=== PATIENT | female | born 1955 | race Caucasian/White ===

== ENCOUNTER 2019-01-24 07:55 | Observation (INO) ==
[2019-01-24] MEDS ORDERED: Ipratropium/Albuterol Neb 3 ML IH ONE (08:02)
[2019-01-24] MEDS ORDERED: Azithromycin 500 MG in D5% in Water 250 ML IVPB ONE (08:02)
[2019-01-24] MEDS ORDERED: methylPREDNISolone 125 MG/2 ML VIAL IVP ONE (08:02)
[2019-01-24] MEDS ORDERED: cefTRIAXone 2,000 MG in Water for inj. (sterile) 20 ML 10 ML IVP ONE (08:02)
[2019-01-24] MEDS ORDERED: 0.9 % Sodium Chloride 1,000 ML IVC ONE (08:02)
--- NOTE | 2019-01-24 08:02 | Emergency Department Note ---
Disposition Clinical Impression: Influenza A, Acute respiratory failure with hypoxemia LLL pneumonia Qualifiers: Pneumonia type: due to unspecified organism Qualified Code(s): J18.1 - Lobar pneumonia, unspecified organism Disposition: Admitted As Inpatient Condition: Fair Referrals: Jennifer Barnes CNP [Partnered Physician] - Forms: ED Satisfaction Letter SOB HPI - General Chief Complaint: ED Shortness of Breath/Dyspnea Stated Complaint: breathing difficulty Time Seen by Provider: 01/24/19 07:57 Source: patient, family Mode of arrival: private vehicle Limitations: physical limitation (Dyspnea) Nursing Notes Reviewed: Yes Vital Signs Reviewed: Yes - History of Present Illness Patient presents stating that she has been feeling poorly since Wednesday. She has been having diffuse body aches, feeling hot with fevers and chills and increased congestion. She states she saw her primary care provider on Wednesday and was continue with supportive treatment. She has had increased shortness of breath with dyspnea on exertion as well as resting dyspnea. Family states that she was saturating 84% at rest this morning. Her cough is increased and she is bringing up a amount of green phlegm. She has had fever 203. She reports only slight nausea without any vomiting. She had scant diarrhea yesterday evening. She denies abdominal pain or cramping. She is not having chest pain. She denies any lower extremity swelling, immobilization or injury. She denies any ill exposures. She has not months status post her second lumbar surgery and has not been having complications. She is getting around with a cane. Patient did take some Tylenol prior to arrival. Pt Subjective Complaint: shortness of breath, cough Onset (ago): day(s) (2) Context: recent illness Severity: moderate Consistency/Duration: gradually worsening Improves with: rest, upright position Worsens with: lying flat, exertion, coughing Associated symptoms: Reports: fever, cough, wheezing, sputum production, orthopnea. Denies: chest pain, pain with inspiration, lower extremity pain, polyuria, polydipsia, parasthesias, palpitations, hemoptysis, diaphoresis, nausea/vomiting, syncope, abdominal pain, rash Treatment prior to arrival: none Cough present: Yes Cough Description: Voluntary, Productive, Rattling Cough Frequency: Intermittent Sputum production: Yes Sputum Amount: Moderate Sputum Color: Green - Related Data Home oxygen amount: none Home Medications Medication Instructions Recorded Confirmed Lisinopril [Zestril] 5 mg PO DAILY 07/03/16 01/24/19 Propranolol [Inderal] 80 mg PO DAILY 10/31/16 01/24/19 LORazepam [Ativan] 1 mg PO HS 11/25/17 01/24/19 Methocarbamol [Robaxin] 750 mg PO TID 11/25/17 01/24/19 Venlafaxine [Effexor] 75 mg PO DAILY 11/25/17 01/24/19 hydroCHLOROthiazide 25 mg PO DAILY 11/25/17 01/24/19 [Hydrochlorothiazide] Benzonatate [Tessalon] 100 mg PO TID 01/24/19 01/24/19 Celecoxib [Celebrex] 200 mg PO BID 01/24/19 01/24/19 Docusate [Colace] 100 mg PO BID 01/24/19 01/24/19 Gabapentin [Neurontin] 100 mg PO TID 01/24/19 01/24/19 Hydrocodone/Acetaminophen 1 each PO Q8H 01/24/19 01/24/19 [Hydrocodon-Acetaminophen 5-325] Loratadine [Claritin] 10 mg PO DAILY 01/24/19 01/24/19 Allergies Allergy/AdvReac Type Severity Reaction Status Date / Time codeine AdvReac Nausea Verified 11/25/17 09:46 All systems ED: reviewed and negative except as stated. Past Medical History - Past Medical History Attestation: Yes The following information was validated with the patient. Source: patient, old records reviewed, obtained from family, nursing notes reviewed Medical history: Reports: arthritis, hypertension, migraine Surgical history: Reports: orthopedic, other (back, lumbar) Psychiatric history: Reports: anxiety, depression - Social History Smoking Status: Never smoker Smokeless Tobacco Status: No Alcohol use: Reports: none Drug use: Reports: none Physical Exam - General Limitations: no limitations General appearance: alert, in distress - Head Head exam: atraumatic, normocephalic, normal inspection - Eye Eye exam: Present: normal appearance, PERRL, EOMI - ENT ENT exam: normal exam, normal oropharynx, mucous membranes moist - Neck Neck exam: Present: normal inspection, full ROM, trachea midline - Chest Chest inspection: Present: normal inspection, symmetric chest wall rise - Respiratory Respiratory exam: Present: respiratory distress, wheezes, prolonged expiratory phase, other (Scattered rhonchi on the right side, congested cough) - Cardiovascular Cardiovascular exam: Present: regular rate, normal rhythm, normal heart sounds. Absent: tachycardia - Abdominal Exam Abdominal exam: Present: soft, Non-Tender, normal bowel sounds. Absent: tenderness, distention, guarding, rebound, rigidity - Extremities Exam Extremities exam: Present: normal inspection, full ROM, normal capillary refill. Absent: tenderness, pedal edema, calf tenderness - Expanded Lower Extremity Exam Neurovascular/Tendon exam: Present: normal capillary refill. Absent: motor deficit, sensory deficit, tendon deficit Gait: observed and normal (With a cane) - Back Exam Back exam: Present: normal inspection, full ROM, other (Midline lumbar scar is well approximated without any inflammation or tenderness.). Absent: tenderness - Neurological Exam Neurological exam: Present: alert, oriented X3, normal gait - Psychiatric Psychiatric exam: Present: normal affect, normal mood - Skin Skin exam: Present: warm, dry, intact, normal color. Absent: cyanosis, diaphoresis, pallor Course Course Narrative: 0849: Patient is positive for influenza A. I have added Tamiflu to her medications. I am awaiting the return of all other laboratories and the radiology reading on her chest x-ray. She will need inpatient observation. This has been discussed with the patient and family. 0900: All testing has been discussed with the patient, family and Dr. Landeros. The patient does have an elevated d-dimer and a CT PE study will be performed prior to anticipated admission. 0945: With return of the CT PE study, the report has been copied and presented to the patient and friend at bedside. The patient's daughter is not Hurting and has had some texts about whether her mother could be transferred to the main campus of [facility]. We are clarifying with the patient's daughter if that is a definite request with plan to then allow the patient to determine her disposition with the input of her daughter. 0950: Dr. Landeros is advised of the CT report. He is agreeable with admission to this facility should the patient and family elect to stay here. 1000: Patient requests transfer to [facility]. Call is being placed to the transfer line. 1005: [facility] transfer center advises that they have no beds in the hospital and 12 admission holds in the emergency department at this time. I have discussed this with the patient and friend. They are recontacting the patient's daughter to discuss their options. 1025: Family has decided to stay at this facility. They understand that if she has a decline in her clinical status but transfer can be coordinated at a later time. I recontacted to Dr. Landeros who is agreeable with the admission and has given verbal orders. Vital Signs Temperature 103.0 F H 01/24/19 07:56 Pulse Rate 102 01/24/19 07:56 Respiratory Rate 21 01/24/19 07:56 Blood Pressure 127/80 01/24/19 07:56 O2 Sat by Pulse Oximetry 83 01/24/19 07:56 Temperature 99.3 F 01/24/19 09:34 Pulse Rate 82 01/24/19 10:06 Respiratory Rate 23 01/24/19 10:06 Blood Pressure 103/69 01/24/19 10:06 O2 Sat by Pulse Oximetry 93 01/24/19 10:06 Oxygen Delivery Oxygen Delivery Nasal Cannula Shortness of Breath/Dyspnea - Differential Diagnosis Likely: congestive heart failure, pneumonia (Influenza), pulmonary embolism. Unlikely: pneumothorax - Medical Records Medical records reviewed: Yes I reviewed the patient's medical records. - Lab Data Lab results reviewed: Yes I reviewed the patient's lab results. Lab results narrative: Influenza A is positive Result diagrams: 01/24/19 08:15 01/24/19 08:15 Lab Results 01/24/19 01/24/19 01/24/19 Range/Units 08:15 08:15 08:15 WBC 10.9 (4.3-11.1) K/mcL RBC 4.65 (3.82-4.97) M/mcL Hgb 12.0 (11.5-15.4) g/dL Hct 38.4 (35.3-44.9) % MCV 82.6 L (83.0-100.0) fL MCH 25.8 L (28.0-33.3) pg MCHC 31.3 L (31.6-35.5) g/dL RDW 18.0 H (11.5-14.5) % Plt Count 234 (140-400) K/mcL MPV 9.0 L (9.4-12.4) fL Immature Gran % 0.5 (0-4) % Seg Neutrophils % 69.2 % Lymphocytes % 16.8 % Monocytes % 13.2 % Eosinophils % 0.0 % Basophils % 0.3 % Neutrophils # 7.5 (1.6-8.9) K/mcL Lymphocytes # 1.8 (0.6-4.6) K/mcL Monocytes # 1.4 H (0.0-1.3) K/mcL Eosinophils # 0.0 (0.0-0.6) K/mcL Basophils # 0.0 (0.0-0.2) K/mcL PT 12.5 H (9.4-12.1) Seconds INR 1.1 APTT 31.6 (26.0-36.0) Seconds D-Dimer 968 H (0-500) ng/mLFEU VBG Lactic Acid (0.5-2.2) mmol/L Sodium 135 L (136-145) mEq/L Potassium 3.6 (3.5-4.5) mEq/L Chloride 97 L (98-109) mEq/L Carbon Dioxide 30 H (23-29) mEq/L BUN 20 (8-23) mg/dL Creatinine 0.81 (0.60-1.20) mg/dL Est GFR ( Amer) > 60 (> 60) Est GFR (Non-Af Amer) > 60 (> 60) BUN/Creatinine Ratio 26 (6-26) Glucose 127 H (70-99) mg/dL Calculated Osmolality 284 (280-300) Lactic Acid (0.5-2.2) mmol/L Calcium 8.9 (8.6-10.3) mg/dL Total Bilirubin 0.3 (0.3-1.0) mg/dL Direct Bilirubin 0.1 (0.0-0.2) mg/dL Indirect Bilirubin 0.2 (0.0-1.2) mg/dL AST 26 (13-39) Units/L ALT 19 (7-52) Units/L Alkaline Phosphatase 90 (34-104) Units/L Troponin I < 0.03 (< 0.04) ng/mL B-Natriuretic Peptide (Less than 100) pg/mL Serum Total Protein 6.9 (6.4-8.9) g/dL Albumin 3.9 (3.5-5.7) g/dL Globulin 3.0 (2.4-3.5) g/dL Albumin/Globulin Ratio 1.3 (1.1-2.2) 01/24/19 01/24/19 01/24/19 Range/Units 08:15 08:15 08:33 WBC (4.3-11.1) K/mcL RBC (3.82-4.97) M/mcL Hgb (11.5-15.4) g/dL Hct (35.3-44.9) % MCV (83.0-100.0) fL MCH (28.0-33.3) pg MCHC (31.6-35.5) g/dL RDW (11.5-14.5) % Plt Count (140-400) K/mcL MPV (9.4-12.4) fL Immature Gran % (0-4) % Seg Neutrophils % % Lymphocytes % % Monocytes % % Eosinophils % % Basophils % % Neutrophils # (1.6-8.9) K/mcL Lymphocytes # (0.6-4.6) K/mcL Monocytes # (0.0-1.3) K/mcL Eosinophils # (0.0-0.6) K/mcL Basophils # (0.0-0.2) K/mcL PT (9.4-12.1) Seconds INR APTT (26.0-36.0) Seconds D-Dimer (0-500) ng/mLFEU VBG Lactic Acid 1.1 (0.5-2.2) mmol/L Sodium (136-145) mEq/L Potassium (3.5-4.5) mEq/L Chloride (98-109) mEq/L Carbon Dioxide (23-29) mEq/L BUN (8-23) mg/dL Creatinine (0.60-1.20) mg/dL Est GFR ( Amer) (> 60) Est GFR (Non-Af Amer) (> 60) BUN/Creatinine Ratio (6-26) Glucose (70-99) mg/dL Calculated Osmolality (280-300) Lactic Acid 1.1 (0.5-2.2) mmol/L Calcium (8.6-10.3) mg/dL Total Bilirubin (0.3-1.0) mg/dL Direct Bilirubin (0.0-0.2) mg/dL Indirect Bilirubin (0.0-1.2) mg/dL AST (13-39) Units/L ALT (7-52) Units/L Alkaline Phosphatase (34-104) Units/L Troponin I (< 0.04) ng/mL B-Natriuretic Peptide 19 (Less than 100) pg/mL Serum Total Protein (6.4-8.9) g/dL Albumin (3.5-5.7) g/dL Globulin (2.4-3.5) g/dL Albumin/Globulin Ratio (1.1-2.2) - Radiology Data Radiology results reviewed: Yes I reviewed the patient's radiology results. Single view chest x-rays performed. This has atelectasis in the left lung above and elevated left hemidiaphragm. The hemidiaphragm has been elevated in previous imaging. I do not see focal infiltrate nor effusion in either lung. Patient does not have pneumothorax or widened mediastinum. The cardiac silhouette does not appear enlarged. This is on my interpretation. Impressions Chest X-Ray 01/24/19 08:02 IMPRESSION: Hypoinflated lungs and left hemidiaphragm elevation. Left more than right basilar atelectasis. D/ / Jessi Peralta MD / Jessi Peralta MD Interpreting Provider: Jessi Peralta MD Impressions Chest X-Ray 01/24/19 08:02 IMPRESSION: Hypoinflated lungs and left hemidiaphragm elevation. Left more than right basilar atelectasis. D/ / Jessi Peralta MD / Jessi Peralta MD Interpreting Provider: Jessi Peralta MD Chest CTA 01/24/19 08:58 IMPRESSION: 1. No acute pulmonary artery embolism. 2. Enlarged main pulmonary artery may reflect pulmonary hypertension. 3. Concentric narrowing of the distal right mainstem bronchus and origin to the right upper lobe bronchial segments with surrounding wall thickening and enlarged right hilar lymph node. Differential includes tracheomalacia or related to infectious/inflammatory origin. An underlying mass is not excluded. Recommend bronchoscopy. 4. Left lower lobe atelectasis or developing infection. D/ / Dmitry Saab MD / Dmityr Saab MD Interpreting Provider: Dmitry Saab MD - EKG Data EKG attestation: Yes I reviewed and interpreted this EKG. EKG shows normal: Reports: sinus rhythm, axis, intervals, QRS complexes, ST-T waves Rate: Reports: normal (99) Interpretation: Reports: no acute changes, normal EKG Critical Care Time Critical Care Time: Yes Total Critical Care Time: 45 Attestation: As this patient did present with signs and symptoms of potential life- threatening illness requiring my urgent intervention, total critical care time in this patient's care has been 45 minutes, not withstanding separately reportable procedures.
[2019-01-24 08:26] LABS: Basophils % 0.3 %; Hematocrit 38.4 % (35.3-44.9); Immature Granulocytes % 0.5 % (0-4); Lymphocytes # 1.8 K/mcL (0.6-4.6); Lymphocytes % 16.8 %; Mean Corpuscular HGB Conc 31.3 g/dL (31.6-35.5); Mean Corpuscular Hemoglobin 25.8 pg (28.0-33.3); Mean Corpuscular Volume 82.6 fL (83.0-100.0); Monocytes # 1.4 K/mcL (0.0-1.3); Monocytes % 13.2 %; Neutrophils # 7.5 K/mcL (1.6-8.9); Platelet Count 234 K/mcL (140-400); Red Blood Count 4.65 M/mcL (3.82-4.97); Segmented Neutrophils % 69.2 %
[2019-01-24 08:40] LABS: Sodium 135 mEq/L (136-145); eGFR For Non-African Americans > 60 (> 60)
[2019-01-24 08:41] LABS: INR 1.1; Prothrombin Time 12.5 Seconds (9.4-12.1)
[2019-01-24 08:43] LABS: Chloride 97 mEq/L (98-109); Potassium 3.6 mEq/L (3.5-4.5)
[2019-01-24 08:44] LABS: Activated Partial Thrombo Time 31.6 Seconds (26.0-36.0); Glucose 127 mg/dL (70-99)
[2019-01-24 08:49] LABS: Troponin I < 0.03 ng/mL (< 0.04)
[2019-01-24] MEDS ORDERED: Isovue-370 500 ML BOTTLE IVP ONE (08:58)
[2019-01-24] MEDS ORDERED: 0.9 % Sodium Chloride 1,000 ML IVC SCH ×2 (09:15→11:39)
[2019-01-24 09:59] LABS: Alanine Aminotransferase 19 Units/L (7-52); Albumin 3.9 g/dL (3.5-5.7); Albumin/Globulin Ratio 1.3 (1.1-2.2); Alkaline Phosphatase 90 Units/L (34-104); Aspartate Amino Transferase 26 Units/L (13-39); BUN/Creatinine Ratio 26 (6-26); Bilirubin,Direct 0.1 mg/dL (0.0-0.2); Blood Urea Nitrogen 20 mg/dL (8-23); Calcium 8.9 mg/dL (8.6-10.3); Carbon Dioxide 30 mEq/L (23-29); Osmolality,Calculated 284 (280-300); Total Protein 6.9 g/dL (6.4-8.9)
[2019-01-24 10:07] LABS: Bilirubin,Indirect 0.2 mg/dL (0.0-1.2)
[2019-01-24 10:09] LABS: Bilirubin,Total 0.3 mg/dL (0.3-1.0)
[2019-01-24] MEDS ORDERED: *HR* HYDROcodone/Acet 5/325 mg TABLET PO SCH (11:39)
[2019-01-24] MEDS ORDERED: Mag Hydrox/Al Hydrox/Simeth 30 ML UDC PO PRN (11:39)
[2019-01-24] MEDS ORDERED: Albuterol 2.5 MG/3 ML NEBULIZER IH PRN (11:39)
[2019-01-24] MEDS ORDERED: Ondansetron 4 MG/2 ML VIAL IVP PRN (11:39)
[2019-01-24] MEDS ORDERED: MOM Conc 10 ML UD.LIQ PO PRN (11:39)
[2019-01-24] MEDS ORDERED: Naloxone 0.4 MG/ML INJ IVP PRN (11:39)
[2019-01-24] MEDS: Gabapentin 100 MG CAPSULE PO SCH ×2 (14:54→22:05)
[2019-01-24] MEDS: Methocarbamol 500 MG TABLET PO SCH ×2 (14:54→22:05)
[2019-01-24] MEDS: Benzonatate 100 MG CAPSULE PO SCH ×2 (14:54→22:06)
--- NOTE | 2019-01-24 15:26 | Internal Med History&Physical ---
Date of Encounter: 01/24/19 Time of Encounter: 14:55 Assessment and Plan (1) Influenza A Current visit: Yes Status: Acute Tamiflu has been ordered. (2) Hypertension Current visit: Yes Status: Chronic Continue lisinopril and HCTZ. Qualifiers: Hypertension type: essential hypertension Qualified Code(s): I10 - Essential (primary) hypertension (3) Microcytosis Current visit: Yes Status: Acute Iron profile will be ordered. (4) LLL pneumonia Current visit: Yes Status: Acute Rocephin and doxycycline with lactobacillus will be given. Qualifiers: Pneumonia type: due to unspecified organism Qualified Code(s): J18.1 - Lobar pneumonia, unspecified organism (5) Hyperglycemia Current visit: Yes Status: Acute Present on all labs since June 2014. Hemoglobin A1c will be checked in a.m. Internal Medicine - H&P: HPI Chief complaint: Dyspnea, Cough and fever Admitted From: Emergency Dept Plans for Post Hospital Care: Home History of present illness: Ms. Lui is a 63 year old female who came to emergency room stating she had onset of fever, dyspnea,, myalgias/arthralgias, cough with green sputum production, and slight diarrhea approximately 48 hours previously. She denies family members or other contacts with similar symptoms. She came to emergency room and was found to have influenza A. Chest CTA showed concentric narrowing of the distal right mainstem bronchus extending into the origin of the RUL bronchial segments with surrounding wall thickening and large right hilar lymph node. She was admitted to [facility] floor for ongoing care needs. Respiratory history is significant for having smoked from age [age]. She does not use home oxygen and has not been diagnosed with chronic lung disease. She has not been tested for sleep apnea. She reports receiving an influenza immunization injection fall 2017. Past Med Surg Social Fam HX - Past Medical History Medical history: arthritis, hypertension, migraine Psychiatric history: anxiety, depression - Past Surgical History Surgical History: orthopedic, other Additional surgical history: lumbar surgery (spinal fusion, 09/2018) - Social History Smoking Status: Never smoker Smokeless Tobacco Status: No Alcohol use: none Drug use: none Internal Medicine - H&P: Meds Lisinopril [Zestril] 5 mg PO DAILY 07/03/16 [History] Propranolol [Inderal] 80 mg PO DAILY 01/21/17 [History] LORazepam [Ativan] 1 mg PO HS 11/25/17 [History] Methocarbamol [Robaxin] 750 mg PO TID 11/25/17 [History] Venlafaxine [Effexor] 75 mg PO DAILY 11/25/17 [History] hydroCHLOROthiazide [Hydrochlorothiazide] 25 mg PO DAILY 11/25/17 [History] Benzonatate [Tessalon] 100 mg PO TID 01/24/19 [History] Celecoxib [Celebrex] 200 mg PO BID 01/24/19 [History] Docusate [Colace] 100 mg PO BID 01/24/19 [History] Gabapentin [Neurontin] 100 mg PO TID 01/24/19 [History] Loratadine [Claritin] 10 mg PO DAILY 01/24/19 [History] Allergy/AdvReac Type Severity Reaction Status Date / Time codeine AdvReac Nausea Verified 11/25/17 09:46 All Systems PM: A 10-system review of systems was performed and is negative for pertinent findings except as documented above in the HPI. Review of systems: Gen.: She states her weight has increased approximately 14 pounds in the past year Cardiovascular: She has history of hypertension but denies [place] heart failure angina DVT or pulmonary embolus Respiratory: As per history of present illness GI: She denies disorders of her liver gallbladder or exocrine pancreas : She denies hematuria dysuria or kidney stones Neurologic: She has had migraine headaches. She denies large distribution strokes or seizures. Endocrine: She denies diabetes thyroid disease or hyperlipidemia Hematology/oncology: She denies blood disorders cancers or anemia Psychiatric: She has anxiety and depression but denies other mental health diagnosis. [place] skeletal: She had L3-S1 fusion surgery October 2018 at [place]. She has DJD but denies gout or other bone joint or muscle disorders. - Constitutional Vitals: Temp Pulse Resp BP Pulse Ox 99.3 F 76 22 104/70 94 01/24/19 09:34 01/24/19 11:03 01/24/19 11:03 01/24/19 11:03 01/24/19 11:03 Exam: Gen.: She is a well-developed well-nourished female resting comfortably in bed who appears in no acute distress HEENT: Head is atraumatic and normocephalic. Eyes: EOMI. There is no scleral icterus. Mouth: Mucosa is moist. Neck: Supple and nontender. There is no thyromegaly or adenopathy noted. Heart: Regular without murmurs gallops or ectopics Lungs: No wheezes or crackles are heard. Abdomen: Soft and nontender. No masses or guarding are noted. Extremities: There is no cyanosis edema or clubbing noted. Dorsalis pedis and posterior tibial pulses are 1-2 over 2 bilaterally. Neurologic: Mental status: She is talkative and a good historian. Cranial nerves: Smile is symmetric. Forehead wrinkles bilaterally. Tongue protrudes midline. EOMI. Motor: There is no pronator drift. Cerebellar: Finger to nose is intact bilaterally. Skin: Warm and dry Internal Med - H&P Results - Labs CBC & Chem 7: 01/24/19 08:15 01/24/19 08:15 Labs: Short CBC 01/24/19 Range/Units 08:15 WBC 10.9 (4.3-11.1) K/mcL Hgb 12.0 (11.5-15.4) g/dL Hct 38.4 (35.3-44.9) % Plt Count 234 (140-400) K/mcL Neutrophils # 7.5 (1.6-8.9) K/mcL BMP 01/24/19 08:15 Sodium 135 L Potassium 3.6 Chloride 97 L Carbon Dioxide 30 H BUN 20 Creatinine 0.81 Glucose 127 H Calcium 8.9 Cardiac Enzymes 01/24/19 Range/Units 08:15 Troponin I < 0.03 (< 0.04) ng/mL Liver Function 01/24/19 Range/Units 08:15 Total Bilirubin 0.3 (0.3-1.0) mg/dL Direct Bilirubin 0.1 (0.0-0.2) mg/dL AST 26 (13-39) Units/L ALT 19 (7-52) Units/L Alkaline Phosphatase 90 (34-104) Units/L Albumin 3.9 (3.5-5.7) g/dL - Impressions ITS Impressions Chest X-Ray 01/24/19 08:02 IMPRESSION: Hypoinflated lungs and left hemidiaphragm elevation. Left more than right basilar atelectasis. D/ / BeccaAnn Peralta MD / Jessi bains MD Interpreting Provider: Jessi Peralta MD Chest CTA 01/24/19 08:58 IMPRESSION: 1. No acute pulmonary artery embolism. 2. Enlarged main pulmonary artery may reflect pulmonary hypertension. 3. Concentric narrowing of the distal right mainstem bronchus and origin to the right upper lobe bronchial segments with surrounding wall thickening and enlarged right hilar lymph node. Differential includes tracheomalacia or related to infectious/inflammatory origin. An underlying mass is not excluded. Recommend bronchoscopy. 4. Left lower lobe atelectasis or developing infection. D/ / 01/24/2019 09:46:26 Dmitry Saab MD / Keisha Llamas Interpreting Provider: Dmitry Saab MD
[2019-01-24] MEDS ORDERED: Ipratropium/Albuterol Neb 3 ML IH SCH (16:00)
[2019-01-24] MEDS: 0.45 % Sodium Chloride w/KCl 20 MEQ/1,000 ML MLS IVC SCH (17:00)
[2019-01-24] MEDS: Doxycycline 100 MG in 0.9 % Sodium Chloride Mini Bag 100 ML IVPB SCH (17:01)
[2019-01-24] MEDS ORDERED: *HR* LORazepam 1 MG TABLET PO SCH (21:00)
[2019-01-24] MEDS: Celecoxib 100 MG CAPSULE PO SCH (22:06)
[2019-01-24] MEDS: *HR* HYDROcodone/Acet 5/325 mg TABLET PO PRN (22:20)
[2019-01-25] MEDS: 0.45 % Sodium Chloride w/KCl 20 MEQ/1,000 ML MLS IVC SCH (02:56)
[2019-01-25 05:49] LABS: Basophils % 0.2 %; Hematocrit 35.8 % (35.3-44.9); Hemoglobin 10.9 g/dL (11.5-15.4); Immature Granulocytes % 0.6 % (0-4); Lymphocytes # 1.9 K/mcL (0.6-4.6); Lymphocytes % 14.7 %; Mean Corpuscular HGB Conc 30.4 g/dL (31.6-35.5); Mean Corpuscular Hemoglobin 25.4 pg (28.0-33.3); Mean Corpuscular Volume 83.4 fL (83.0-100.0); Mean Platelet Volume 9.1 fL (9.4-12.4); Monocytes # 1.1 K/mcL (0.0-1.3); Monocytes % 8.6 %; Platelet Count 215 K/mcL (140-400); Red Blood Count 4.29 M/mcL (3.82-4.97); Red Cell Distribution Width 18.2 % (11.5-14.5); Segmented Neutrophils % 75.9 %
[2019-01-25 06:08] LABS: BUN/Creatinine Ratio 25 (6-26); Blood Urea Nitrogen 15 mg/dL (8-23); Calcium 8.5 mg/dL (8.6-10.3); Carbon Dioxide 29 mEq/L (23-29); Chloride 101 mEq/L (98-107); Glucose 153 mg/dL (70-105); Neutrophils # 9.6 K/mcL (1.6-8.9); Osmolality,Calculated 288 (280-300); Potassium 3.5 mEq/L (3.5-5.1); Sodium 137 mEq/L (136-145); eGFR For Non-African Americans > 60 (> 60)
[2019-01-25] MEDS: Doxycycline 100 MG in 0.9 % Sodium Chloride Mini Bag 100 ML IVPB SCH ×2 (06:44→17:55)
[2019-01-25] MEDS ORDERED: cefTRIAXone 2,000 MG in Water for inj. (sterile) 20 ML 20 ML IVPB SCH (08:00)
[2019-01-25] MEDS ORDERED: Azithromycin 500 MG in D5% in Water 250 ML IVPB SCH (08:00)
[2019-01-25 08:58] LABS: % Iron Saturation 4 % (15-50); Iron 16 mcg/dL (50-170); Transferrin 290 mg/dL (203-362)
[2019-01-25 09:16] LABS: Ferritin 57 ng/mL (10-120)
[2019-01-25 09:29] LABS: Estimated Average Glucose 148 mg/dl; Hemoglobin A1C 6.8 %
[2019-01-25] MEDS: Celecoxib 100 MG CAPSULE PO SCH (09:51)
[2019-01-25] MEDS: Loratadine 10 MG TABLET PO SCH (09:51)
[2019-01-25] MEDS: hydroCHLOROthiazide 25 MG TABLET PO SCH (09:53)
[2019-01-25] MEDS: Benzonatate 100 MG CAPSULE PO SCH ×3 (09:54→21:30)
[2019-01-25] MEDS: Gabapentin 100 MG CAPSULE PO SCH (09:54)
[2019-01-25] MEDS: Methocarbamol 500 MG TABLET PO SCH ×3 (09:54→21:28)
[2019-01-25] MEDS ORDERED: Gabapentin 100 MG CAPSULE PO SCH ×2 (10:30→15:00)
[2019-01-25] MEDS ORDERED: 0.45 % Sodium Chloride w/KCl 20 MEQ/1,000 ML MLS IVC SCH (10:30)
--- NOTE | 2019-01-25 10:50 | Internal Med Progress Note ---
Date of Encounter: 01/25/19 Time of Encounter: 10:20 - Assessment and plan (1) Influenza A Current Visit: Yes Status: Acute Assessment and plan: January 25. Continue Tamiflu (2) Hypertension Current Visit: Yes Status: Chronic Assessment and plan: January 25. Continue lisinopril and HCTZ Qualifiers: Hypertension type: essential hypertension Qualified Code(s): I10 - Essential (primary) hypertension (3) Microcytosis Current Visit: Yes Status: Acute Assessment and plan: January 25. Anemia testing showed iron 16, transferrin saturation 4%, transferrin 290, ferritin 57, and B12 614. Hemoglobin has decreased to 10.9. Start ferrous sulfate with ascorbic acid in a.m. (4) LLL pneumonia Current Visit: Yes Status: Acute Assessment and plan: January 25. Continue Rocephin and doxycycline with lactobacillus. Qualifiers: Pneumonia type: due to unspecified organism Qualified Code(s): J18.1 - Lobar pneumonia, unspecified organism (5) Hyperglycemia Current Visit: Yes Status: Acute Assessment and plan: January 25. Hemoglobin A1c is 6.8% consistent with DM 2, diet-controlled. She will receive diabetic diet instruction. - Subjective Interval history: January 25. She has no new complaints. - Constitutional Vitals: Temp Pulse Resp BP Pulse Ox 98.5 F 67 18 127/80 93 01/25/19 08:11 01/25/19 08:11 01/25/19 08:11 01/25/19 08:11 01/25/19 08:11 Exam: She is sitting in bed and appears in no acute distress. Her affect is overall cheerful. I reviewed her medications and lab results. Internal Medicine: Result - Labs CBC & Chem 7: 01/25/19 05:33 01/25/19 05:33 Labs: Short CBC 01/25/19 Range/Units 05:33 WBC 12.7 H (4.3-11.1) K/mcL Hgb 10.9 L (11.5-15.4) g/dL Hct 35.8 (35.3-44.9) % Plt Count 215 (140-400) K/mcL Neutrophils # 9.6 H (1.6-8.9) K/mcL BMP 01/25/19 05:33 Sodium 137 Potassium 3.5 Chloride 101 Carbon Dioxide 29 BUN 15 Creatinine 0.59 L Glucose 153 H Calcium 8.5 L - ABG Interpretation ABG results: PT/INR, D-dimer PT 12.5 Seconds (9.4-12.1) H 01/24/19 08:15 D-Dimer 968 ng/mLFEU (0-500) H 01/24/19 08:15 Consult Discharge Plan - Plan Referrals: NONE,PCP [Primary Care Provider] - 1 week
[2019-01-25] MEDS ORDERED: Acetaminophen 325 MG TABLET PO PRN (10:57)
[2019-01-25] MEDS: *HR* LORazepam 1 MG TABLET PO SCH (11:23)
[2019-01-25] MEDS: Lactobacillus 1 EACH CAP.SPRINK PO SCH ×2 (11:23→21:32)
[2019-01-25] MEDS ORDERED: *HR* LORazepam 1 MG TABLET PO PRN (16:14)
--- NOTE | 2019-01-25 17:56 | Electrocardiograph Report ---
[place] [id number] Test Date: 2019-01-24 Pat Name: Giovana Lui Department: EDP-16 Room: [facility] Gender: F [employer]: : [id number] Requested By: Geronimo Andersen Order Number: [id number] Reading MD: Calin Zuniga Measurements Intervals [place] Rate: 99 P: 41 NH: 133 QRS: -1 QRSD: 89 T: 38 QT: 343 QTc: 441 Interpretive Statements Sinus rhythm Abnormal R-wave progression, early transition Electronically Signed On 01-25-2019 17:54:16 EDT by Calin Zuniga
[2019-01-25] MEDS ORDERED: traZODone 50 MG TABLET PO PRN (18:26)
[2019-01-25] MEDS ORDERED: Gabapentin 300 MG CAPSULE PO SCH (21:00)
[2019-01-25] MEDS: *HR* HYDROcodone/Acet 5/325 mg TABLET PO PRN (21:31)
[2019-01-25] MEDS: Gabapentin 300 MG CAPSULE PO SCH (21:32)
[2019-01-26 05:56] LABS: Basophils % 0.2 %; Eosinophils % 0.2 %; Hematocrit 34.8 % (35.3-44.9); Hemoglobin 10.7 g/dL (11.5-15.4); Immature Granulocytes % 0.3 % (0-4); Lymphocytes # 2.6 K/mcL (0.6-4.6); Lymphocytes % 29.2 %; Mean Corpuscular HGB Conc 30.7 g/dL (31.6-35.5); Mean Corpuscular Hemoglobin 25.4 pg (28.0-33.3); Mean Corpuscular Volume 82.7 fL (83.0-100.0); Mean Platelet Volume 9.4 fL (9.4-12.4); Monocytes # 0.8 K/mcL (0.0-1.3); Monocytes % 9.2 %; Neutrophils # 5.4 K/mcL (1.6-8.9); Platelet Count 224 K/mcL (140-400); Red Blood Count 4.21 M/mcL (3.82-4.97); Red Cell Distribution Width 17.8 % (11.5-14.5); Segmented Neutrophils % 60.9 %
[2019-01-26] MEDS: Doxycycline 100 MG in 0.9 % Sodium Chloride Mini Bag 100 ML IVPB SCH (06:14)
[2019-01-26 06:19] LABS: BUN/Creatinine Ratio 22 (6-26); Blood Urea Nitrogen 13 mg/dL (8-23); Calcium 8.7 mg/dL (8.6-10.3); Carbon Dioxide 29 mEq/L (23-29); Chloride 101 mEq/L (98-107); Glucose 95 mg/dL (70-105); Osmolality,Calculated 286 (280-300); Potassium 3.2 mEq/L (3.5-5.1); Sodium 138 mEq/L (136-145); eGFR For Non-African Americans > 60 (> 60)
[2019-01-26] MEDS ORDERED: Ascorbic Acid 500 MG TABLET PO SCH (06:30)
[2019-01-26] MEDS: Gabapentin 300 MG CAPSULE PO SCH (08:29)
[2019-01-26] MEDS: Lactobacillus 1 EACH CAP.SPRINK PO SCH (08:30)
[2019-01-26] MEDS: *HR* LORazepam 1 MG TABLET PO SCH (08:31)
[2019-01-26] MEDS: Benzonatate 100 MG CAPSULE PO SCH (08:31)
[2019-01-26] MEDS: hydroCHLOROthiazide 25 MG TABLET PO SCH (08:32)
[2019-01-26] MEDS: Methocarbamol 500 MG TABLET PO SCH (08:32)
[2019-01-26] MEDS: Loratadine 10 MG TABLET PO SCH (08:32)
[2019-01-26 11:10] VITALS: BP 129/78
--- NOTE | 2019-01-26 11:22 | Discharge Summary ---
Orders not resulted at time of discharge: Pending orders 01/24/19 08:15 Culture,Blood [] Stat Date of Encounter: 01/26/19 Time of Encounter: 11:15 - Discharge Diagnosis (1) Influenza A Priority: Primary Status: Acute (2) LLL pneumonia Priority: Secondary Status: Acute Qualifiers: Pneumonia type: due to unspecified organism Qualified Code(s): J18.1 - Lobar pneumonia, unspecified organism (3) Hypertension Priority: Secondary Status: Chronic Qualifiers: Hypertension type: essential hypertension Qualified Code(s): I10 - Essential (primary) hypertension (4) DM type 2 (diabetes mellitus, type 2) Priority: Secondary Status: Chronic Qualifiers: Diabetes mellitus intermodal dispatcher insulin use: without intermodal dispatcher use Diabetes mellitus complication status: without complication Qualified Code(s): E11.9 - Type 2 diabetes mellitus without complications (5) Iron deficiency anemia Priority: Secondary Status: Chronic Qualifiers: Iron deficiency anemia type: chronic blood loss Qualified Code(s): D50.0 - Iron deficiency anemia secondary to blood loss (chronic) Hospital course: Ms. Lui is a 63 year old female who came to emergency room stating she had onset of fever, dyspnea,, myalgias/arthralgias, cough with green sputum production, and slight diarrhea approximately 48 hours previously. She denies family members or other contacts with similar symptoms. She came to emergency room and was found to have influenza A. Chest CTA showed concentric narrowing of the distal right mainstem bronchus extending into the origin of the RUL bronchial segments with surrounding wall thickening and large right hilar lymph node. She was admitted to [facility] floor for ongoing care needs. Initial orders were written by the emergency room physician. I saw her on January 24 and performed the history and physical. She was started on Tamiflu for influenza A. She was started on Rocephin and doxycycline with lactobacillus for left lower lobe pneumonia. She had good clinical response with WBC remaining normal at 8.9 and decreased left shift on differential by day of discharge. She will continue with antibiotic and probiotic and Tamiflu to complete a 5 day course. Potassium level decreased to 3.2 on day of discharge. HCTZ will be reduced to 12.5 mg daily. Supplement potassium chloride 10 mEq daily will be given. Anemia testing showed iron 16, transferrin saturation 4%, transferrin 290, heard a 57, and B12 614. She was started on ferrous sulfate with ascorbic acid. I told her it was likely the NSAID use was contributing to her anemia. Her PCP can do further workup as needed including screening for colon cancer etc. Hemoglobin A1c returned at 6.8% consistent with DM 2, diet-controlled. She received diabetic instruction during her hospital stay. Her PCP can continue to monitor. On January 26 she felt improved and stable for discharge home. She will follow with her PCP Zabrina Barnes CNP within 1 week. Room air oximetry will be checked on 6 minute walk prior to discharge. - Time Spent with Patient Total time spent providing and/or coordinating discharge services: - Discharge Medications Prescriptions: New Cefuroxime PO [Ceftin] 500 mg PO Q12HR #6 tablet Ascorbic Acid [Vitamin C] 500 mg PO 0630 #30 tablet Doxycycline 100 mg PO BID #6 capsule Ferrous Sulfate 325 mg PO 0630 #30 tablet hydroCHLOROthiazide [Hydrochlorothiazide] 12.5 mg PO DAILY 365 Days tablet Lactobacillus [Culturelle] 1 each PO BID #6 cap.sprink Oseltamivir [Tamiflu] 75 mg PO BID #6 capsule Continue Lisinopril [Zestril] 5 mg PO DAILY Propranolol [Inderal] 80 mg PO DAILY LORazepam [Ativan] 1 mg PO HS Venlafaxine [Effexor] 75 mg PO DAILY Methocarbamol [Robaxin] 750 mg PO TID Benzonatate [Tessalon] 100 mg PO TID Loratadine [Claritin] 10 mg PO DAILY Gabapentin [Neurontin] 100 mg PO TID Docusate [Colace] 100 mg PO BID Meloxicam [Mobic] 15 mg PO DAILY Changed Mirapex 0.5 mg PO DAILY #0 Discontinued hydroCHLOROthiazide [Hydrochlorothiazide] 25 mg PO DAILY Home Medications: Lisinopril [Zestril] 5 mg PO DAILY 07/03/16 [History] Propranolol [Inderal] 80 mg PO DAILY 10/31/16 [History] LORazepam [Ativan] 1 mg PO HS 11/25/17 [History] Methocarbamol [Robaxin] 750 mg PO TID 11/25/17 [History] Venlafaxine [Effexor] 75 mg PO DAILY 11/25/17 [History] Benzonatate [Tessalon] 100 mg PO TID 01/24/19 [History] Docusate [Colace] 100 mg PO BID 01/24/19 [History] Gabapentin [Neurontin] 100 mg PO TID 01/24/19 [History] Loratadine [Claritin] 10 mg PO DAILY 01/24/19 [History] Meloxicam [Mobic] 15 mg PO DAILY 01/25/19 [History] Ascorbic Acid [Vitamin C] 500 mg PO 0630 #30 tablet 01/26/19 [Rx] Cefuroxime PO [Ceftin] 500 mg PO Q12HR #6 tablet 01/26/19 [Rx] Doxycycline 100 mg PO BID #6 capsule 01/26/19 [Rx] Ferrous Sulfate 325 mg PO 0630 #30 tablet 01/26/19 [Rx] Lactobacillus [Culturelle] 1 each PO BID #6 cap.sprink 01/26/19 [Rx] Mirapex 0.5 mg PO DAILY #0 01/26/19 [Rx] Oseltamivir [Tamiflu] 75 mg PO BID #6 capsule 01/26/19 [Rx] hydroCHLOROthiazide [Hydrochlorothiazide] 12.5 mg PO DAILY 365 Days tablet 01/26/19 [Rx] Allergies/Adverse Reactions: Allergy/AdvReac Type Severity Reaction Status Date / Time codeine AdvReac Nausea Verified 11/25/17 09:46 Date of admission: 01/24/19 10:58 Primary care physician: Zabrina Barnes CNP Consults: 01/25/19 10:26 Consult to Diabetes Education [CONS] Routine Comment: Reason for Consult: Newly diagnosed DM 2, diet controlled - Constitutional Vitals: Temp Pulse Resp BP Pulse Ox 98.9 F 67 18 129/78 96 01/26/19 11:04 01/26/19 11:04 01/26/19 11:04 01/26/19 11:04 01/26/19 11:04 - Patient Status Disposition: Home, Self-Care Condition: Fair - Discharge Instructions Follow Up With: Jennifer Barnes CNP [Partnered Physician] - 1 week - Diet and Activity Activity: resume usual activities as tolerated Diet: diabetic diet
== END 2019-01-26 11:55 | disposition home or self-care (01) ==
LOC: INPPIK 07:55 → EMEROOPIK 07:55 → INPPIK 11:32
PROVIDERS: ADMIT Internal Medicine; ATTEND Internal Medicine